=== PATIENT | male | born 1985 | race Caucasian/White ===

== ENCOUNTER 2017-03-30 08:07 | Inpatient (IN) | payer BC, OTHER ==
[~2017-03-30] VITALS: Ht 182.9 cm; Wt 78.5 kg
[2017-03-30] MEDS ORDERED: ONDANSETRON ODT 4 MG TAB.RAPDIS SL PRN (12:45)
[2017-03-30] MEDS ORDERED: ONDANSETRON 4 MG/2 ML VIAL IM PRN (12:45)
[2017-03-30] MEDS ORDERED: MAGNESIUM HYDROXIDE 30 ML LIQUID UDC PO PRN (12:45)
[2017-03-30] MEDS ORDERED: MIRALAX 17 GM POWD.PACK PO PRN (12:45)
[2017-03-30] MEDS ORDERED: LORAZEPAM 2 MG/1 ML VIAL IM PRN (12:45)
[2017-03-30] MEDS ORDERED: BUPRENORPHINE HCL 2 MG TAB.SUBL SL PRN (12:45)
[2017-03-30] MEDS ORDERED: DICYCLOMINE HCL 20 MG TABLET PO PRN (12:45)
[2017-03-30] MEDS ORDERED: LORAZEPAM 1 MG TABLET PO PRN ×2 (12:45)
[2017-03-30] MEDS ORDERED: ACETAMINOPHEN 325 MG TABLET PO PRN (12:45)
[2017-03-30] MEDS ORDERED: LOPERAMIDE HCL 2 MG CAPSULE PO PRN ×2 (12:45)
[2017-03-30] MEDS ORDERED: MAG HYDROX/AL HYDROX/SIMETH 30 ML LIQUID UDC PO PRN (12:45)
[2017-03-30] MEDS ORDERED: IBUPROFEN 600 MG TABLET PO PRN (12:45)
[2017-03-30] MEDS ORDERED: diphenhydrAMINE 50 MG CAPSULE PO PRN (12:45)
[2017-03-30] MEDS ORDERED: THIAMINE HCL 200 MG/2 ML VIAL IM ONE (13:00)
[2017-03-30] MEDS ORDERED: BUPR8TAB4 SL (13:08)
[2017-03-30] MEDS ORDERED: GABA-534 PO (13:09)
[2017-03-30] MEDS ORDERED: QUET200T PO (13:10)
--- NOTE | 2017-03-30 13:10 | NUR ---
PRE ASSESSMENT: PT IS A/O X 4.HE PRESENTS WITH BLUNTED AFFECT AND DEPRESSED MOOD. HE DENIES S/I AND H/I BP 129/74 90 98.4 98% 16 HIS GAIT IS STEADY. 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 HE DENIES MEDICAL HX HE DENIES ALLERGIES.
[2017-03-30] MEDS: GABAPENTIN 300 MG CAPSULE PO SCH ×2 (14:22→21:37)
[2017-03-30] MEDS: LORAZEPAM 1 MG TABLET PO SCH ×3 (14:22→21:37)
--- NOTE | 2017-03-30 15:00 | NUR ---
ADMISSION: A 31 YO MALE ADMITTED FOR MEDICALLY SUPERVISED DETOX . HE REPORTS USING HEROIN IV 1 GM DAILY X 2 WEEKS. XANAX 1 MG DAILY PO. METH 1/2 GM DAILY IV AND HE ALSO STATES (AFTER ASSESSMENT) THAT HE DRINKS 1 PINT OF ETOH EVERY OTHER DAY AND USES 8 MG SUBOXONE OCCASIONALLY WHEN HE RUNS OUT OF HEROIN. HE LAST USED HEROIN METH AND XANAX LAST NIGHT. HE USED SUBOXONE 2 DAYS AGO. HE HAS BEEN USING FOR A TOTAL OF 2 WEEKS (EXCEPT SUBOXONE). HE HAS A 17 YR HISTORY OF ADDICTION.HE STATES HE WAS IN A PLACE HE THINKS WAS CALLED [facility] IN [place] FOR 2 MONTHS UNTIL 2 WEEKS AGO. HE STATES HE WAS ON SUBUTEX MAINTENANCE THE WHOLE TIME. HE REPORTS HE AND HIS HAVE BEEN SLEEPING AT [address] AND [place] ON [address] AND ARE HOMELESS. HE STATES THEY ARE UNABLE TO TAKE CARE OF THEIR SON SINCE HE WAS 4 YRS OLD AND IS 9 YO NOW. HE STATES HE HAS BEEN TO NUMEROUS TREATMENTS FROM [place] TO [place] AND HAS BEEN UNSUCCESSFUL AT STAYING CLEAN AND SOBER. HE DENIES ALLERGIES. HE DENIES SZ HX. HE DENIES MEDICAL HX. HE DOES REPORT A HX OF ANXIETY AND DEPRESSION. PT STATES HE CANNOT STOP USING ON HIS OWN AND NEEDS HELP. HE DENIES PCP. ORIENTED PT TO STAFF AND UNIT. OFFERED SUPPORT. WILL MEDICATE ORDERED COWS 5 CIWA 3 ON ADMISSION. WILL CONTINUE TO MONITOR AND OFFER SAFE AND SUPPORTIVE ENVIRONMENT.
[2017-03-30 15:28] VITALS: BP 129/79
[2017-03-30 15:59] LABS: *AMPHETAMINE, URINE NEGATIVE (NEGATIVE); *BARBITURATE, URINE NEGATIVE (NEGATIVE); *CANNABINOID, URINE NEGATIVE (NEGATIVE); *COCCAINE, URINE NEGATIVE (NEGATIVE); *OPIATE, URINE POSITIVE (NEGATIVE); *PHENCYCLIDINE SCREEN,URINE NEGATIVE (NEGATIVE)
[2017-03-30 16:00] VITALS: BP 104/71
[2017-03-30 17:48] LABS: BASOPHILS # (AUTO) 0.1 K/uL (0.0-8.0); BASOPHILS % (AUTO) 1.3 % (0.0-2.0); EOSINOPHILS # (AUTO) 0.3 K/uL (0.0-0.7); ETHANOL < 3 MG/DL (0-0); HEMATOCRIT 45.3 % (40-50); HEMOGLOBIN 15.3 G/DL (14.0-18.0); LYMPHOCYTES # (AUTO) 2.4 K/UL (0.8-4.8); LYMPHOCYTES % (AUTO) 34.1 % (20.5-51.5); MEAN CORPUSCULAR HEMOGLOBIN 30.9 UUG (27.0-31.0); MEAN CORPUSCULAR HGB CONC 34 g/dL (32.0-37.0); MEAN CORPUSCULAR VOLUME 91.7 FL (82.0-92.0); MONOCYTES # (AUTO) 0.6 K/UL (0.1-1.30); MONOCYTES % (AUTO) 9.1 % (0.0-11.0); NEUTROPHILS # (AUTO) 3.7 K/UL (1.8-8.9); NEUTROPHILS % (AUTO) 51.5 % (38.5-71.5); PLATELET COUNT (AUTO) 190 K/UL (150-450); RED BLOOD CELL COUNT(AUTO) 4.95 MIL/UL (4.7-6.1); WHITE BLOOD COUNT (AUTO) 7.1 K/UL (4.0-11.2)
[2017-03-30 17:51] LABS: ALANINE AMINOTRANSFERASE 79 U/L (16-63); ALKALINE PHOSPHATASE 92 U/L (50-136); AMYLASE 59 U/L (25-115); ASPARTATE AMINOTRANSFERASE 31 U/L (15-37); BILIRUBIN,TOTAL 0.4 mg/dL (0.2-1.0); CARBON DIOXIDE 32 mmol/L (21-32); CHLORIDE 101 mmol/L (98-107); CREATININE 0.8 mg/dL (0.6-1.3); GLUCOSE 83 mg/dL (74-106); LIPASE 126 U/L (73-393); MAGNESIUM 1.8 mg/dL (1.8-2.4); POTASSIUM 4.4 mmol/L (3.5-5.1); TOTAL PROTEIN, SERUM 8.5 g/dL (6.4-8.2); UREA NITROGEN, BLOOD 15 mg/dL (7-18)
--- NOTE | 2017-03-30 19:19 | NUR ---
END OF SHIFT: PT IS NEWLY ADMITTED FOR HEROIN,XANAX,METH DEPENDENCE. HE RECEIVED SCHEDULED ATIVAN X 2. LAST CIWA 2 COWS 5. SEE ADMISSION NOTE. WILL PASS SHIFT REPORT TO ONCOMING NIGHT NURSE.
--- NOTE | 2017-03-30 19:30 | NUR ---
Start of Shift Note: Patient is a 31 y/o male admitted today 03/30/17 for Opiate and Benzo dependence. Patient has PMHx of Anxiety & Depression. No seizure history noted. Patient is on a regular diet with no known food and drug allergies. Full Code status. Skin noted to be intact. Patient started on a Ativan taper and tolerating well. Last COWS 5 CIWA 2. No PRN medications given during day shift. Patient is asleep in room and easily arousable. Patient remained alert & oriented x4. No shortness of breath noted. Respiration even & unlabored. Abdomen soft & non-distended. No nausea/vomiting noted. Patient presented with complains of sweating, chills, 4/10 generalized body aches. Patient denies hallucinations. Safety precautions are in place. Bed locked in lowest position. Both side rails up. Call light within pts reach. Will continue to monitor patient.
[2017-03-30 20:00] VITALS: BP 109/72
[2017-03-31 02:29] VITALS: BP 118/83
[2017-03-31] MEDS: CLONIDINE HCL 0.1 MG TABLET PO PRN (03:44)
[2017-03-31] MEDS: HYDROXYZINE PAMOATE 25 MG CAPSULE PO PRN (03:44)
[2017-03-31] MEDS: METHOCARBAMOL 750 MG TABLET PO PRN ×2 (03:44→20:30)
--- NOTE | 2017-03-31 03:44 | NUR ---
PRN Administration Patient complains of generalized body aches, anxiety, sweating, & chills. PRN Clonidine, Vistaril, & Robaxin administered as ordered. Will reassess in 1 hour. Will continue to monitor patient.
[2017-03-31 03:45] VITALS: BP 112/73
--- NOTE | 2017-03-31 04:44 | NUR ---
PRN Reassessment Patient appears calm and comfortable in bed. No s/s of distress noted. Patient noted with no facial grimacing. Will continue to monitor patient.
--- NOTE | 2017-03-31 07:15 | NUR ---
End of Shift Note: Patient had an uneventful night. Patient continues on his Ativan taper and tolerating well. Patient remained stable and vitals remained WNL. Patient is compliant with treatment plan. Last COWS 9 CIWA 6 at 0400. Patient was given PRN Clonidine, Robaxin and Vistaril for complains of withdrawal at 0344 and were effective. Patient still asleep at this time and appears comfortable. No s/s of distress noted. Pt slept for a total of 8 hours. Pt voided 3x with no bowel movement. All needs attended & met. Safety precautions are in place. Will continue to monitor patient.
--- NOTE | 2017-03-31 08:10 | NUR ---
Start of Shift Corn Husker received report on 31 year old male admitted on 03/30/17 for poly substance detoxification. Pt is a full code, with regular diet and NKA. PMH of anxiety and depression. Corn Husker encounters pt in room resting with eyes closed. Respiration even and unlabored with rise and fall of chest noted. Will continue to monitor, support and encourage according to plan of care.
[2017-03-31 08:30] VITALS: BP 103/62
[2017-03-31] MEDS ORDERED: 5 DAY TAPER BUPRENORPHINE -SERENITY PROTOCOL SL PRN (09:00)
[2017-03-31] MEDS ORDERED: TUBERCULIN,PURIF.PROT.DERIV. 5 TU/0.1 ML TEST ID ONE (09:00)
[2017-03-31] MEDS: FOLIC ACID 1 MG TABLET PO SCH (09:32)
[2017-03-31] MEDS: MULTIVITAMINS,THERAPEUTIC TABLET PO SCH (09:32)
[2017-03-31] MEDS: LORAZEPAM 1 MG TABLET PO SCH ×3 (09:32→20:30)
[2017-03-31] MEDS: DOCUSATE SODIUM 250 MG CAPSULE PO SCH (09:32)
[2017-03-31] MEDS: THIAMINE HCL 100 MG TABLET PO SCH (09:32)
[2017-03-31] MEDS: BUPRENORPHINE HCL 2 MG TAB.SUBL SL SCH ×4 (09:32→21:00)
[2017-03-31] MEDS: GABAPENTIN 300 MG CAPSULE PO SCH ×3 (09:33→20:30)
[2017-03-31 12:35] VITALS: BP 100/57
--- NOTE | 2017-03-31 14:00 | NUR ---
Held Subutex Pt was scheduled to receive medication as ordered, but pt was sedated and lethargic. Safety Risk Lead alerted MD and it was agreed to hold 1300 dose.
--- NOTE | 2017-03-31 17:36 | NUR ---
Scheduled PM Seroquel Software Quality Analyst was informed by pt, pt would rather take his medication at bedtime, due to sedative nature. Administration time changed at HS. 1800 scheduled dosage not administered.
[2017-03-31 17:42] VITALS: BP 121/68
[2017-03-31] MEDS ORDERED: QUETIAPINE FUMARATE 200 MG TABLET PO SCH ×2 (18:00→21:00)
--- NOTE | 2017-03-31 19:05 | NUR ---
End of Shift Animal Sticker provided report on 31 year old male admitted on 03/30/17 for poly substance detoxification, with no further comments, questions or concerns voiced. Pt is a full code, with regular diet and NKA. PMH of anxiety and depression. Pt has been somnolent and resting most of the day, makes his needs known. Awake to eat and take medication, makes minimal requests, and has few complaints as evidenced by last COWS of 4 and CIWA of 4 at 1600. Bed in low position with wheels locked, side rails up x2 and call light within reach. Will continue to monitor, support and encourage according to plan of care
[2017-03-31 20:00] VITALS: BP 118/73
--- NOTE | 2017-03-31 20:00 | NUR ---
START OF SHIFT NOTE RECEIVED PATIENT IN HIS ROOM, AWAKE , WATCHING TV. PATIENT ALERT AND ORIENTED X 4. RESPIRATION EVEN AND UNLABORED. PATIENT REPORTS ANXIETY, SWEATING, GENERALIZED BODY ACHES 7/10, NOTED WITH PILOERECTION. NO N/V. PATIENT REPORTS ATTENDED GROUPS. APPETITE IS GOOD AND DRINKING FLUIDS WELL. PATIENT STATES HE FEELS MUCH BETTER AND MEDICATION ARE EFFECTIVE IN CONTROLLING HIS WITHDRAWAL SYMPTOMS. PATIENT IS A 31 YEAR OLD MALE ADMITTED FOR BENZO/OPIATE DEPENDENCE. PATIENT IN ON 5 DAY ATIVAN AND 5 SUBUTEX TAPER, STARTED TODAY. PER DAY SHIFT NURSE, PATIENT DID NOT REQUIRE ANY PRN MEDICATION . PATIENTS 1300 SUBUTEX AND ROUTINE PM SEROQUEL WAS HELD. PATIENT IN ROOM AND ASLEEP MOST OF THE DAY. LAST COWS 4 AND CIWA 4. ON FALL /SEIZURE PRECAUTION. SAFETY MEASURES IN PLACE. CALL LIGHT IN REACH. WILL CONTINUE TO MONITOR.
--- NOTE | 2017-03-31 20:30 | NUR ---
PRN ROBAXIN ADMINISTRATION PATIENT C/O GENERALIZED BODY ACHES 02/13. PRN ROBAXIN GIVEN. WILL MONITOR FOR EFFECTIVENESS
--- NOTE | 2017-03-31 21:30 | NUR ---
JIM GONZALEZ RE-ASSESSMENT PAIN LEVEL IS 2/10 AT THIS TIME. WILL CONTINUE TO MONITOR
[2017-04-01] VITALS: BP 109/63
[2017-04-01 06:09] LABS: HEPATITIS B SURFACE AG Negative (Negative)
--- NOTE | 2017-04-01 07:18 | NUR ---
END OF SHIFT NOTE PATIENT REMAIN ALERT AND ORIENTED X 4. RESPIRATION EVEN AND UNLABORED. PATIENT REPORTED ANXIETY, SWEATING, GENERALIZED BODY ACHES 7/10, NOTED WITH PILOERECTION. NO N/V. PATIENT REPORTED ATTENDED GROUPS. APPETITE IS GOOD AND DRINKING FLUIDS WELL. PATIENT STATES HE FEELS MUCH BETTER AND MEDICATION ARE EFFECTIVE IN CONTROLLING HIS WITHDRAWAL SYMPTOMS. PATIENT CONTINUE ON 5 DAY ATIVAN AND 5 SUBUTEX TAPER, TOLERATED WELL, NO ADVERSE REACTION. PATIENT WAS GIVEN PRN ROBAXIN AT 2030. ON FALL /SEIZURE PRECAUTION. SAFETY MEASURES IN PLACE. CALL LIGHT IN REACH. WILL CONTINUE TO MONITOR. SLEPT 7 HOURS. FLUID INTAKE 2,065 ML. VOIDED X 6 . BM X 1. LAST COWS 3 AND CIWA 2
--- NOTE | 2017-04-01 07:55 | NUR ---
START OF SHIFT NOTE patient is alert and orientated X 4. he is up this morning walking around the unit. patient states he slept "ok" last night. per night nurse he slept 6 hours. last COWS 3 CIWA 2. Robaxin PRN given last night with effectiveness. All needs have been met and all safety measures in place. will continue to monitor patient.
[2017-04-01 08:03] VITALS: BP 119/74
[2017-04-01] MEDS: BUPRENORPHINE HCL 2 MG TAB.SUBL SL SCH ×3 (08:51→20:40)
[2017-04-01] MEDS: LORAZEPAM 1 MG TABLET PO SCH ×4 (08:51→20:39)
[2017-04-01] MEDS: GABAPENTIN 300 MG CAPSULE PO SCH ×3 (08:51→20:39)
[2017-04-01] MEDS: THIAMINE HCL 100 MG TABLET PO SCH (08:51)
[2017-04-01] MEDS: FOLIC ACID 1 MG TABLET PO SCH (08:51)
[2017-04-01] MEDS: MULTIVITAMINS,THERAPEUTIC TABLET PO SCH (08:51)
[2017-04-01] MEDS: DOCUSATE SODIUM 250 MG CAPSULE PO SCH (08:51)
--- NOTE | 2017-04-01 09:29 | NUR ---
Therapist prompted client about group times. Client stated he would try to attend all groups today.
[2017-04-01 12:50] VITALS: BP 128/75
[2017-04-01 17:39] VITALS: BP 110/78
--- NOTE | 2017-04-01 18:50 | NUR ---
END OF SHIFT NOTE Patient is a 31 year old male admitted 03/30/17. Patient is alert and orientated X4. Vital signs remain within normal limits throughout the day. Patient is on a 5 day ativan 5 day Subutex taper and tolerating both well. NO PRNs were giving during the day shift. Last CIWA 3 COWS 3. Patient has participated in group and activities. All needs have been met. All safety measures in place. Will continue to monitor patient until endorsed to night nurse.
[2017-04-01 20:00] VITALS: BP 121/80
--- NOTE | 2017-04-01 20:00 | NUR ---
START OF SHIFT NOTE RECEIVED PATIENT IN ROOM. PATIENT ALERT AND ORIENTED X 4. RESPIRATION EVEN AND UNLABORED. DENIES ANY PAIN. PATIENT REPORTS ANXIETY, FINE TREMORS AND SWEATING. NO N/V. COWS 5 AND CIWA 4. VS BP-121/80 T-97.8 P-83 R-16 SpO2 AT 97% IN RA. RECEIVED REPORT FROM DAY SHIFT NURSE. PATIENT IS A 31 YEAR OLD MALE ADMITTED FOR BENZO/OPIATE DEPENDENCE. PATIENT CONTINUE ON 5 DAY ATIVAN AND 5 DAY SUBUTEX TAPER, TOLERATED WELL. NO ADVERSE REACTION. PATIENT COMPLIANT WITH MEDICATION AND TREATMENT PLAN. PATIENT DID NOT REQUIRE ANY PRN MEDICATION. PATIENT STABLE THROUGHOUT THE DAY. LAST CIWA 3 AND CIWA 3. ON FALL PRECAUTION. SAFETY MEASURES IN PLACE. CALL LIGHT IN REACH. WILL CONTINUE TO MONITOR.
[2017-04-01] MEDS: QUETIAPINE FUMARATE 200 MG TABLET PO PRN (21:45)
--- NOTE | 2017-04-01 21:45 | NUR ---
PRN SEROQUEL ADMINISTRATION PATIENT REQUESTS FOR SLEEP AID. PRN SEROQUEL GIVEN. WILL MONITOR FOR EFFECTIVENESS
--- NOTE | 2017-04-01 23:30 | NUR ---
PRN SEROQUEL RE-ASSESSMENT PATIENT IN BED WITH HIS EYES CLOSED. RESPIRATION EVEN AND UNLABORED. SAFETY MEASURES IN PLACE. CALL LIGHT IN REACH. WILL CONTINUE TO MONITOR
--- NOTE | 2017-04-02 | NUR ---
COWS/CIWA/VS PATIENT REFUSED TO BE WOKEN UP AND FOR VS . COWS/CIWA UNABLE TO ASSESS COWS AND CIWA. RESPIRATION EVEN AND UNLABORED. RR 15. SAFETY MEASURES IN PLACE. CALL LIGHT IN REACH. WILL CONTINUE TO MONITOR.
[2017-04-02 04:00] VITALS: BP 105/63
--- NOTE | 2017-04-02 07:07 | NUR ---
END OF SHIFT NOTE PATIENT REMAIN STABLE. VS WNL. PATIENT COMPLIANT WITH MEDICATION AND TREATMENT PLAN. PATIENT ATTENDED GROUPS. PATIENT REPORTED ANXIETY, FINE TREMORS AND SWEATING,NO N/V , INSOMNIA DURING SHIFT. PATIENT WAS GIVEN PRN SEROQUEL FOR SLEEP. PATIENT CONTINUE ON 5 DAY ATIVAN AND 5 DAY SUBUTEX TAPER FOR BENZO/OPIATE DEPENDENCE , TOLERATED WELL. NO ADVERSE REACTION. PATIENT REMAIN FREE OF INJURY. ON FALL PRECAUTION. SAFETY MEASURES IN PLACE. CALL LIGHT IN REACH. WILL CONTINUE TO MONITOR. SLEPT 6 HOURS. FLUID INTAKE 1,183 ML. VOIDED X 2. BM X 1. LAST CIWA 2 AND COWS 2 .
--- NOTE | 2017-04-02 07:50 | NUR ---
START OF SHIFT Received pt Aox4. patient awake in bed and reports his back hurting and feeling "hungover." Patient is on 5 day Ativan/5 Day Subutex taper. PRN Seroquel given per night nurse. Patient slept 6 hours. COWS 2 CIWA 2 per night nurse. Encouraged pt to increase fluid intake. Encouraged pt to attend groups and activities. Encouraged pt to notify RN if S/S of W/D worsen. Vital signs stable. Will monitor closely and offer help frequently.
[2017-04-02 08:00] VITALS: BP 108/62
[2017-04-02] MEDS ORDERED: BUPRENORPHINE HCL 2 MG TAB.SUBL SL SCH (09:00)
[2017-04-02] MEDS: THIAMINE HCL 100 MG TABLET PO SCH (09:05)
[2017-04-02] MEDS: FOLIC ACID 1 MG TABLET PO SCH (09:05)
[2017-04-02] MEDS: MULTIVITAMINS,THERAPEUTIC TABLET PO SCH (09:05)
[2017-04-02] MEDS: DOCUSATE SODIUM 250 MG CAPSULE PO SCH (09:05)
[2017-04-02] MEDS: GABAPENTIN 300 MG CAPSULE PO SCH ×3 (09:05→20:26)
[2017-04-02] MEDS: LORAZEPAM 1 MG TABLET PO SCH ×3 (09:05→20:26)
[2017-04-02 12:00] VITALS: BP 110/67
[2017-04-02] MEDS: BUPRENORPHINE HCL 2 MG TAB.SUBL SL SCH ×2 (14:30→20:26)
[2017-04-02 17:00] VITALS: BP 128/78
[2017-04-02] MEDS: HYDROXYZINE PAMOATE 25 MG CAPSULE PO PRN (17:07)
[2017-04-02] MEDS: CLONIDINE HCL 0.1 MG TABLET PO PRN (17:07)
--- NOTE | 2017-04-02 17:07 | NUR ---
PRN Vistaril 50mg administered PO for anxiety and Clonidine 0.1mg for irritability, will continue to monitor. Call light within reach.
--- NOTE | 2017-04-02 18:07 | NUR ---
Reassessment PRN Vistaril 50mg and Clonidine 0.1mg effective, client is in bed lying and watching TV, he stated , "I feel better, thank you." Call light within reach.
--- NOTE | 2017-04-02 18:42 | NUR ---
END OF SHIFT NOTE PATIENT CONTINUED ON 5 DAY ATIVAN/5 DAY SUBUTEX TAPER AND TOLERATING WELL. PATIENT ATTENDED GROUPS AND ACTIVITIES DURING SHIFT AND SOCIALIZED WITH PEERS. NO PRNS GIVEN DURING SHIFT DETOX MEDS ARE EFFECTIVE. LAST COWS 4 CIWA 3. VITAL SIGNS STABLE. ALL NEEDS MET. ALL SAFETY MEASURES IN PLACE. WILL ENDORSE TO DOCK CLERK. Addendum: 04/02/17 at 1850 by YUE ONEILL RN PATIENT GIVEN PRN CLONIDINE AND VISTARIL DURING SHIFT WITH EFFECTIVENESS,
--- NOTE | 2017-04-02 19:45 | NUR ---
31 year old male admitted on 03/30/17 for poly substance detoxification. Pt is a full code, with regular diet and NKA. Pt will continue on 5 day ativan and 5 day subutex taper, tolerated well. No adverse reactions. Pt remains compliant with medication and treatment plan. Call light within reach, will continue to monitor.
[2017-04-02 20:04] VITALS: BP 108/69
--- NOTE | 2017-04-03 01:04 | NUR ---
0000 Vital Signs Pt declined Addendum: 04/03/17 at 0105 by SHAWN CARPENTER RN Amended: Links added.
[2017-04-03 04:39] VITALS: BP 96/60
--- NOTE | 2017-04-03 06:58 | NUR ---
END OF SHIFT NOTE 324 Patient is a 31 year old male admitted 03/30/17. Patient is alert and orientated X4. Patient is on a 5 day ativan 5 day Subutex taper and tolerating both well. NO PRNs were giving during the shift. Total intake for shift is 1090ml, voided x 2 and 1 stool. Last CIWA score 3, and COWS score 4. All needs have been met. All safety measures in place. Pt is in stable condition and resting comfortably.
--- NOTE | 2017-04-03 07:56 | NUR ---
START OF SHIFT Received pt Aox4. Patient reports feeling anxious and agitated this morning. Patient is on 5 day Ativan/5 Day Subutex taper. No PRNs given per night nurse. Patient slept 7 hours. COWS 4 CIWA 3 per night nurse. Encouraged pt to increase fluid intake. Encouraged pt to attend groups and activities. Encouraged pt to notify RN if S/S of W/D worsen. Vital signs stable. Will monitor closely and offer help frequently.
[2017-04-03 08:00] VITALS: BP 106/61
[2017-04-03] MEDS: BUPRENORPHINE HCL 2 MG TAB.SUBL SL SCH ×3 (08:44→20:59)
[2017-04-03] MEDS: FOLIC ACID 1 MG TABLET PO SCH (08:44)
[2017-04-03] MEDS: GABAPENTIN 300 MG CAPSULE PO SCH ×3 (08:44→20:59)
[2017-04-03] MEDS: MULTIVITAMINS,THERAPEUTIC TABLET PO SCH (08:44)
[2017-04-03] MEDS: LORAZEPAM 1 MG TABLET PO SCH ×2 (08:44→21:00)
[2017-04-03] MEDS: DOCUSATE SODIUM 250 MG CAPSULE PO SCH (08:44)
[2017-04-03] MEDS: THIAMINE HCL 100 MG TABLET PO SCH (08:44)
[2017-04-03] MEDS: HYDROXYZINE PAMOATE 25 MG CAPSULE PO PRN (10:31)
--- NOTE | 2017-04-03 10:32 | NUR ---
PRN MEDICATION 50 MG VISTARIL GIVEN FOR C/O ANXIETY. WILL MONITOR
--- NOTE | 2017-04-03 11:20 | NUR ---
PRN REASSESSMENT PATIENT REPORTS IMPROVEMENT IN ANXIETY. WILL MONITOR
[2017-04-03 12:00] VITALS: BP 114/74
[2017-04-03 16:00] VITALS: BP 115/72
--- NOTE | 2017-04-03 18:35 | NUR ---
END OF SHIFT NOTE PATIENT CONTINUED ON 5 DAY ATIVAN/5 DAY SUBUTEX TAPER AND TOLERATING WELL. PATIENT ATTENDED GROUPS AND ACTIVITIES DURING SHIFT AND SOCIALIZED WITH PEERS.PRN VISTARIL GIVEN WITH EFFECTIVENESS. LAST COWS 4 CIWA 3. VITAL SIGNS STABLE. ALL NEEDS MET. ALL SAFETY MEASURES IN PLACE. WILL ENDORSE TO WIND TURBINE SERVICE TECHNICIAN.
--- NOTE | 2017-04-03 19:30 | NUR ---
START OF SHIFT Pt is a 31 y/o male admitted for polysubstance use dependency.Pt received in room in a stable condition.He is A/A/O X 4.Breathing is even and non labored;skin is intact,warm and dry to touch;no c/o pain or distress noted.Pt continues on Subutex and Ativan taper as ordered and is tolerating well.Last COWS=4,CIWA=3.Pt has NKA,on regular diet and full code status.PMH of depression and anxiety.All safety measures in place per hospital policy,call light within reach,will continue to monitor.
[2017-04-03 20:00] VITALS: BP 108/73
[2017-04-03] MEDS: BACLOFEN 10 MG TABLET PO SCH (20:59)
[2017-04-03] MEDS ORDERED: CLONIDINE HCL 0.1 MG TABLET PO ONE (21:00)
[2017-04-03] MEDS: METHOCARBAMOL 750 MG TABLET PO PRN (21:00)
--- NOTE | 2017-04-03 21:00 | NUR ---
PRN MEDS PRN ROBAXIN AND BENADRYL GIVEN ORDERED FOR C/O MYALGIA AND INSOMNIA PER PT REQUEST.WILL MONITOR FOR EFFECTIVENESS.
--- NOTE | 2017-04-03 22:00 | NUR ---
PRN MEDS EFFECTIVE.PT SEEN LYING IN BED WITH EYES CLOSED,NO S/S OF DISTRESS NOTED,WILL CONTINUE TO MONITOR.
--- NOTE | 2017-04-04 | NUR ---
V/S REFUSED.COWS/CIWA DEFERRED Pt is fast asleep,refused v/s.COWS/CIWA deferred.Will continue to monitor.
--- NOTE | 2017-04-04 04:00 | NUR ---
V/S REFUSED.COWS/CIWA DEFERRED Pt is fast asleep,refused v/s.COWS/CIWA deferred.Will continue to monitor.
--- NOTE | 2017-04-04 06:35 | NUR ---
END OF SHIFT Pt is a 29 yr old female ,admitted for Opiate/Benzo dependency and is on 5 day Valium taper and 4 day Subutex taper as ordered.Pt has HX of pseudo seizures and is on 1:1 for seizure precautions. Pt has been cooperative with medication regimen. Last COWS score was 1 and CIWA score was 2,as of midnight. V/S stable.Pt slept all night without any problem,Zofran IM given for N/V,was effective. Pt slept 9 hrs,fluid intake was 250 mls,voided x 2,all safety measures in place, sitter at bed side; will continue to monitor. Addendum: 04/04/17 at 0638 by MADDY VENEGAS RN ERROR---CHARTED ON WRONG PATIENT.
--- NOTE | 2017-04-04 06:54 | NUR ---
END OF SHIFT Pt is a 31 y/o male admitted for polysubstance use dependency.Pt is A/A/O X 4.Pt continues on Subutex and Ativan taper as ordered and is tolerating well.Last COWS=4,CIWA=3 as of 1999 last night.Midnight and 0400 assessment deferred due to Pt being asleep.Pt has NKA,on regular diet and full code status.PMH of depression and anxiety.PRN Robaxin and Benadryl given for myalgia and insomnia and were effective.Pt slept 7 hrs,fluid intake was 1000 mls,voided x 2.No c/o pain or distress noted at this time.Pt is in stable condition.All safety measures in place per hospital policy,call light within reach,will continue to monitor until endorsed to oncoming shift.
--- NOTE | 2017-04-04 07:52 | NUR ---
Start of shift note; Received report from night nurse. Patient is on 5 day Ativan/5 Day Subutex taper. No PRNs given per night nurse. Patient's last COWS score is 4 and last CIWA score is 3 at 1999. Patient is on fall and seizure precaution. Bed in lowest position, call light within reach. All safety measures secured. Will continue to monitor.
[2017-04-04 08:00] VITALS: BP 92/61
[2017-04-04] MEDS: MULTIVITAMINS,THERAPEUTIC TABLET PO SCH (08:39)
[2017-04-04] MEDS: FOLIC ACID 1 MG TABLET PO SCH (08:39)
[2017-04-04] MEDS: THIAMINE HCL 100 MG TABLET PO SCH (08:39)
[2017-04-04] MEDS: GABAPENTIN 300 MG CAPSULE PO SCH ×3 (08:39→20:55)
[2017-04-04] MEDS: BACLOFEN 10 MG TABLET PO SCH ×2 (08:39→14:16)
[2017-04-04] MEDS ORDERED: BUPRENORPHINE HCL 2 MG TAB.SUBL SL SCH (09:00)
[2017-04-04 12:00] VITALS: BP 136/80
[2017-04-04 15:17] LABS: *AMPHETAMINE, URINE NEGATIVE (NEGATIVE); *BARBITURATE, URINE NEGATIVE (NEGATIVE); *CANNABINOID, URINE NEGATIVE (NEGATIVE); *COCCAINE, URINE NEGATIVE (NEGATIVE); *OPIATE, URINE NEGATIVE (NEGATIVE); *PHENCYCLIDINE SCREEN,URINE NEGATIVE (NEGATIVE)
[2017-04-04 16:00] VITALS: BP 117/70
--- NOTE | 2017-04-04 18:40 | NUR ---
END OF SHIFT NOTE PATIENT COMPLETED TAPER. PATIENT SCHEDULED FOR DISCHARGE TOMORROW. PATIENT ATTENDED GROUPS AND ACTIVITIES DURING SHIFT AND SOCIALIZED WITH PEERS.NO PRNS GIVEN DURING SHIFT. LAST COWS 4 CIWA 2. VITAL SIGNS STABLE. ALL NEEDS MET. ALL SAFETY MEASURES IN PLACE. WILL ENDORSE TO UNDERGROUND ELECTRICIAN.
[2017-04-04 20:00] VITALS: BP 110/74
--- NOTE | 2017-04-04 20:00 | NUR ---
START OF SHIFT NOTE PATIENT ALERT AND ORIENTED X 4. RESPIRATION EVEN AND UNLABORED. PATIENT STATES ANXIOUS BUT ALRIGHT, VERBALIZES BODY ACHES BUT TOLERABLE. RECEIVED REPORT FROM DAY SHIFT NURSE. PATIENT IS A 31 YEAR OLD MALE ADMITTED FOR BENZO/OPIATE DEPENDENCE. PATIENT COMPLETED 5 DAY ATIVAN AND 5 DAY SUBUTEX TAPER. PATIENT IS MEDICALLY CLEARED TO BE DISCHARGE TOMORROW. PATIENT DID NOT REQUIRE ANY PRN MEDICATION. LAST COWS 4 AND CIWA 2. ON FALL/SEIZURE PRECAUTION. SAFETY MEASURES IN PLACE. CALL LIGHT IN REACH. WILL CONTINUE TO MONITOR.
[2017-04-04] MEDS ORDERED: HYDR-3895 PO (20:28)
[2017-04-04] MEDS ORDERED: GABA-534 PO (20:28)
[2017-04-04] MEDS ORDERED: DICY20TA28 PO (20:28)
[2017-04-04] MEDS ORDERED: IBUP-1955 PO (20:28)
[2017-04-04] MEDS ORDERED: BACL20TA PO (20:28)
[2017-04-04] MEDS ORDERED: DIPH50CA37 PO (20:28)
[2017-04-04] MEDS: QUETIAPINE FUMARATE 200 MG TABLET PO PRN (20:55)
[2017-04-04] MEDS: BACLOFEN 20 MG TABLET PO SCH (20:55)
--- NOTE | 2017-04-04 20:55 | NUR ---
PRN SEROQUEL ADMINISTRATION PATIENT REQUESTS FOR SLEEP AID. PRN SEROQUEL GIVEN. WILL MONITOR FOR EFFECTIVENESS
[2017-04-04] MEDS ORDERED: BACLOFEN 10 MG TABLET PO SCH (21:00)
--- NOTE | 2017-04-04 22:00 | NUR ---
PRN SEROQUEL RE-ASSESSMENT PATIENT IN BED ASLEEP . RESPIRATION EVEN AND UNLABORED. SAFETY MEASURES IN PLACE. CALL LIGHT IN REACH. WILL CONTINUE TO MONITOR
--- NOTE | 2017-04-05 | NUR ---
COWS/CIWA/VS PATIENT IN BED ASLEEP. COWS/CIWA UNABLE TO ASSESS. RR 14. RESPIRATION EVEN AND UNLABORED. SAFETY MEASURES IN PLACE. CALL LIGHT IN REACH. WILL CONTINUE TO MONITOR
--- NOTE | 2017-04-05 06:56 | NUR ---
COWS/CIWA/VS PATIENT IN BED ASLEEP. COWS/CIWA UNABLE TO ASSESS. RR 15. RESPIRATION EVEN AND UNLABORED. SAFETY MEASURES IN PLACE. CALL LIGHT IN REACH. WILL CONTINUE TO MONITOR
--- NOTE | 2017-04-05 06:57 | NUR ---
END OF SHIFT NOTE PATIENT REMAIN ALERT AND ORIENTED X 4. RESPIRATION EVEN AND UNLABORED. PATIENT REPORTED ANXIOUS BUT ALRIGHT, VERBALIZES BODY ACHES BUT TOLERABLE BEGINNING OF SHIFT. PATIENT COMPLETED 5 DAY ATIVAN AND 5 DAY SUBUTEX TAPER. PATIENT IS MEDICALLY CLEARED TO BE DISCHARGE TODAY. PATIENT WAS GIVEN PRN SEROQUEL AT 2054 WHICH HE REQUESTED BECAUSE HE WANTED TO SLEEP EARLY. PATIENT COMPLIANT WITH MEDICATIONS AND TREATMENT PLAN. ON FALL/SEIZURE PRECAUTION. SAFETY MEASURES IN PLACE. CALL LIGHT IN REACH. WILL CONTINUE TO MONITOR.SLEPT 8 HOURS. FLUID INTAKE 1,355 ML. VOIDED X 2. NO BM . LAST COWS 1 AND CIWA 1.
--- NOTE | 2017-04-05 07:40 | NUR ---
START OF SHIFT NOTE Patient is alert and orientated X4 this morning. He is up and awake this morning. Patient slept 8 hours per night nurse with last COWS 1 CIWA 1. No PRNs given last night. patient is scheduled to be discharge this morning. Vitals are WNL. All needs have been met and all safety measures in place. Will continue to monitor closely.
[2017-04-05 08:18] VITALS: BP 111/71
[2017-04-05] MEDS: BACLOFEN 20 MG TABLET PO SCH (08:24)
[2017-04-05] MEDS: FOLIC ACID 1 MG TABLET PO SCH (08:24)
[2017-04-05] MEDS: MULTIVITAMINS,THERAPEUTIC TABLET PO SCH (08:24)
[2017-04-05] MEDS: THIAMINE HCL 100 MG TABLET PO SCH (08:24)
[2017-04-05] MEDS: GABAPENTIN 300 MG CAPSULE PO SCH (08:25)
--- NOTE | 2017-04-05 09:50 | NUR ---
DISCHARGE NOTE Patient is in stable condition. Vital signs WNL. Patient is alert and orientated X4, skin intact. Patient denies any suicidal of homicidal ideations. All discharge paperwork completed dated and signed. Patient educated about discharge instructions, what dot do after discharge, when to contact MD as well as the S/S reportable to MD. Patient verbalized understanding. Patient last COWS 2 CIWA 4. Patient was discharge from [facility] on 04/05/17 at 0950. Patient left with all of his belongings and prescriptions. MD has been contacted and notified of patients discharge.
== END 2017-04-05 09:50 | disposition other institution (70) | DRG 895 ==
LOC: SRC 11:54
PROVIDERS: ADMIT Internal Medicine; ATTEND Internal Medicine
PROC: HZ2ZZZZ Detoxification Services for Substance Abuse Treatment (ICD-10-PCS; principal; 2017-03-30)
PROC: HZ31ZZZ Individual Counseling for Substance Abuse Treatment, Behavioral (ICD-10-PCS; 2017-04-01)
PROC: HZ41ZZZ Group Counseling for Substance Abuse Treatment, Behavioral (ICD-10-PCS; 2017-04-01)
DX: F10.230 Alcohol dependence with withdrawal, uncomplicated (principal); F39 Unspecified mood [affective] disorder; F11.23 Opioid dependence with withdrawal; Y90.9 Presence of alcohol in blood, level not specified; F13.230 Sedative, hypnotic or anxiolytic dependence with withdrawal, uncomplicated; F15.10 Other stimulant abuse, uncomplicated; B19.20 Unspecified viral hepatitis C without hepatic coma; Z59.0 Homelessness; Z59.1 Inadequate housing; F17.210 Nicotine dependence, cigarettes, uncomplicated; Z79.899 Other long term (current) drug therapy; F41.9 Anxiety disorder, unspecified
CPT/HCPCS: 36415; 70030-TC; 80307; 80346; 80361; 83690; 83735; 85025; 86580; 86592; 86705; 86803; 87340; 87806; A4663; G0480; Q0163